=== PATIENT | male | born 1980 | race African-American/Black ===

== ENCOUNTER 2017-12-23 15:26 | Emergency (ER) | payer MEDICAID, OTHER ==
[~2017-12-23] VITALS: Ht 180.3 cm; Wt 88.5 kg
[~2017-12-23 15:26] MED LIST: ADVAIR 100-501 EACH INH; ALBUTEROL SULF8.5 GM INH; AZITHROMYCIN250 MG ORAL; BACTRIM-DS1 EA ORAL; CEPHALEXIN500 MG ORAL; GUAIFENESIN-CO118 M1 ORAL; IBUPROFEN600 M1 PO; IBUPROFEN600 MG ORAL; IBUPROFEN600 MG PO; NKM; NORCO 5-325 TA1 EAC1 ORAL; NORCO 5-325 TA1 EACH ORAL; NORCO 5-325 TA1 EACH PO; PHENERGAN6.25 MG/5 ORAL; PREDNISONE20 MG ORAL; PROMETHAZINE-C118 M1 ORAL; TESSALON PERLE100 MG ORAL
[2017-12-23 15:42] VITALS: BP 135/81
--- NOTE | 2017-12-23 15:44 | Emergency Room Report ---
History of Present Illness General Chief Complaint: Chest Pain Source: Patient, Medical Record Present Illness HPI 37-year-old male with asthma, p/w cough and chest pain for 1 day. Chest pain started while after coughing. Localized to substernal area, no radiation to back or other areas, sharp in nature, gradual in onset, multiple. Also complaining of SOB, states that he has been using his albuterol inhaler today.. Pain is Worsened with deep inspiration. Denies palpitations, diaphoresis, n/ v. Denies fever, chills, abd pain Smokes cigarettes, no other drug use Denies cardiac history or family history of cardiac disease at a young age. Denies history of PE/DVT Allergies: Coded Allergies: No Known Allergies (Unverified , 02/15/15) Patient History Past Medical History: see triage record Past Surgical History: none Pertinent Family History: none Reviewed Nursing Documentation: PMH: Agreed, PSxH: Agreed Nursing Documentation-PMH Past Medical History: No History, Except For Hx Asthma: Yes Review of Systems All Other Systems: negative except mentioned in HPI Physical Exam Vital Signs Date Time Temp Pulse Resp B/P (MAP) Pulse Ox O2 Delivery O2 Flow Rate FiO2 12/23/17 15:31 98.1 102 24 135/81 100 Room Air 98.1 Sp02 EP Interpretation: reviewed, normal General Appearance: alert, GCS 15, non-toxic, mild distress Head: normocephalic, atraumatic Eyes: bilateral eye normal inspection, bilateral eye PERRL, bilateral eye EOMI ENT: normal ENT inspection, normal pharynx, normal voice, moist mucus membranes Neck: normal inspection, full range of motion, supple Respiratory: normal inspection, lungs clear, normal breath sounds, no respiratory distress, no retraction, no wheezing, speaking full sentences, other - NO wheezing. no tachypnea. , chest symmetrical Cardiovascular #1: other - +L sided chest wall tenderness. RRR Cardiovascular #2: 2+ radial (R), 2+ radial (L) Gastrointestinal: normal inspection, non tender, soft, non-distended, no guarding Genitourinary: no CVA tenderness Musculoskeletal: normal inspection, back normal, normal range of motion, non- tender Neurologic: normal inspection, alert, oriented x3, responsive, motor strength/ tone normal, sensory intact, normal gait, speech normal Psychiatric: normal inspection, judgement/insight normal, memory normal Skin: normal inspection, normal color, no rash, warm/dry, well hydrated, normal turgor Medical Decision Making Diagnostic Impression: Primary Impression: Chest pain Additional Impression: Cough ER Course 37-year-old male p/w chest pain DDX: Musculoskeletal CP/costochondritis vs. pneumothorax vs. gastritis/GERD PE less likely given history and physical examination, not hypoxic/tachycardic, no risk factors, PERC negative. ACS less likely given age/history, no concern for dissection, patient denies pain radiating to back Plan: NSAIDs, EKG, CXR Anticipate DC home as patient appears clinically well. ER course: Patient was treated NSAIDs however still appeared uncomfortable and in pain labs drawn, trop neg CTA performed - neg Patient remains well appearing in ED. Disposition: Patient will be discharged to home with a prescription of motrin, Tessalon Perles. Strict precautions discussed with patient on when to emergently return to the ED : this includes worsening/severe chest pain, palpitations, shortness of breath, syncopal episodes, fever or chills, which may indicate severe illness. Patient verbalized understanding. Patient instructed to follow up with their PMD within the next 2 days. Patient agrees with plan. Please note that this Emergency Department Report was dictated using [employer] crew member technology software, occasionally this can lead to erroneous entry secondary to interpretation by the dictation equipment. EKG Diagnostic Results EP Interpretation: Yes Rate: normal Rhythm: NSR ST Segments: No acute changes ASA given to patient: no Rhythm Strip EP Interpretation: Yes Rate: 97 Rhythm: NSR, no PVCs, no ectopy Chest X-ray CXR: Ordered: Yes 1 view Indication: Chest pain EP interpretation: Yes Interpretation: No consolidation, no effusion, no PTX, no acute cardiopulmonary disease, no widened mediastinum Impression: No acute disease Electronically signed by Jovita Sellers MD Laboratory Tests Test 12/23/17 16:40 White Blood Count 6.6 K/UL (4.8-10.8) Red Blood Count 5.90 M/UL (4.70-6.10) Hemoglobin 15.0 G/DL (14.2-18.0) Hematocrit 47.0 % (42.0-52.0) Mean Corpuscular Volume 80 FL (80-99) Mean Corpuscular Hemoglobin 25.4 PG (27.0-31.0) L Mean Corpuscular Hemoglobin Concent 31.8 G/DL (32.0-36.0) L Red Cell Distribution Width 13.8 % (11.6-14.8) Platelet Count 293 K/UL (150-450) Mean Platelet Volume 8.5 FL (6.5-10.1) Neutrophils (%) (Auto) 56.3 % (45.0-75.0) Lymphocytes (%) (Auto) 35.2 % (20.0-45.0) Monocytes (%) (Auto) 6.9 % (1.0-10.0) Eosinophils (%) (Auto) 0.1 % (0.0-3.0) Basophils (%) (Auto) 1.6 % (0.0-2.0) Urine Color Yellow Urine Appearance Clear Urine pH 6 (4.5-8.0) Urine Specific [place] 1.015 (1.005-1.035) Urine Protein 2+ (NEGATIVE) H Urine Glucose (UA) Negative (NEGATIVE) Urine Ketones 4+ (NEGATIVE) H Urine Occult Blood 1+ (NEGATIVE) H Urine Nitrite Negative (NEGATIVE) Urine Bilirubin Negative (NEGATIVE) Urine Urobilinogen 1 MG/DL (0.0-1.0) H Urine Leukocyte Esterase 1+ (NEGATIVE) H Urine RBC 2-4 /HPF (0 - 0) H Urine WBC 0-2 /HPF (0 - 0) Urine Squamous Epithelial Cells None /LPF (NONE/OCC) Urine Bacteria Few /HPF (NONE) Sodium Level 138 MMOL/L (136-145) Potassium Level 4.3 MMOL/L (3.5-5.1) Chloride Level 98 MMOL/L (98-107) Carbon Dioxide Level 23 MMOL/L (21-32) Anion Gap 17 mmol/L (5-15) H Blood Urea Nitrogen 9 mg/dL (7-18) Creatinine 1.4 MG/DL (0.55-1.30) H Estimate Glomerular Filtration Rate > 60 mL/min (>60) Glucose Level 85 MG/DL (74-106) Calcium Level 9.7 MG/DL (8.5-10.1) Total Bilirubin 1.1 MG/DL (0.2-1.0) H Direct Bilirubin 0.2 MG/DL (0.0-0.3) Aspartate Amino Transferase (AST) 25 U/L (15-37) Alanine Aminotransferase (ALT) 21 U/L (12-78) Alkaline Phosphatase 58 U/L (46-116) Troponin I 0.000 ng/mL (0.000-0.056) Total Protein 8.7 G/DL (6.4-8.2) H Albumin 4.5 G/DL (3.4-5.0) Globulin 4.2 g/dL Albumin/Globulin Ratio 1.1 (1.0-2.7) Urine Opiates Screen Negative (NEGATIVE) Urine Barbiturates Screen Negative (NEGATIVE) Phencyclidine (PCP) Screen Negative (NEGATIVE) Urine Amphetamines Screen Negative (NEGATIVE) Urine Benzodiazepines Screen Negative (NEGATIVE) Urine Cocaine Screen Negative (NEGATIVE) Urine Marijuana (THC) Screen Negative (NEGATIVE) CT/MRI/US Diagnostic Results CT/MRI/US Diagnostic Results : Imaging Test Ordered: CTA Impression CTA CHEST: No PE or aortic dissection. No focal consolidation or pleural effusion. Last Vital Signs Date Time Temp Pulse Resp B/P (MAP) Pulse Ox O2 Delivery O2 Flow Rate FiO2 12/23/17 15:31 98.1 102 24 135/81 100 Room Air 98.1 Disposition: HOME, SELF-CARE Condition: Improved Scripts Ibuprofen* (MOTRIN*) 600 Mg Tablet 600 MG ORAL Q8H Y for For Pain, #30 TAB 0 Refills Prov: Jovita Sellers M.D. 12/23/17 Benzonatate* (TESSALON PERLE*) 100 Mg Capsule 100 MG ORAL THREE TIMES A DAY, #21 PERLE Prov: Jovita Sellers M.D. 12/23/17 Patient Instructions: Nonspecific Chest Pain Jovita Sellers M.D. Dec 23, 2017 15:44
[2017-12-23] MEDS ORDERED: Ketorolac 30mg Inj IM ONE (15:45)
[2017-12-23] MEDS ORDERED: IBUPROFEN600 MG ORAL (15:56)
[2017-12-23] MEDS ORDERED: TESSALON PERLE100 MG ORAL (15:56)
--- NOTE | 2017-12-23 16:50 | Diagnostic Imaging Report ---
Indication: Chest pain Comparison: 07/27/2014 A single view chest radiograph was obtained. Findings: Cardiomediastinal appearance is within normal limits for age. Pulmonary vascularity is appropriate. The diaphragmatic contour is smooth and costophrenic angles are sharp. No pleural effusions are identified. The bones are unremarkable. Impression: No acute findings
[2017-12-23 17:02] VITALS: BP 138/78
[2017-12-23 17:04] LABS: BASOPHILS % (AUTO) 1.6 % (0.0-2.0); EOSINOPHILS % (AUTO) 0.1 % (0.0-3.0); LYMPHOCYTES % (AUTO) 35.2 % (20.0-45.0); MEAN CORPUSCULAR VOLUME 80 FL (80-99); MONOCYTES % (AUTO) 6.9 % (1.0-10.0); NEUTROPHILS % (AUTO) 56.3 % (45.0-75.0); PLATELET COUNT 293 K/UL (150-450); RED CELL DISTRIBUTION WIDTH 13.8 % (11.6-14.8); WHITE BLOOD COUNT 6.6 K/UL (4.8-10.8)
[2017-12-23 17:25] LABS: APPEARANCE,URINE CLEAR; BILIRUBIN, URINE NEGATIVE (NEGATIVE); GLUCOSE, URINE (UA) NEGATIVE (NEGATIVE); KETONES,URINE 4+ (NEGATIVE); LEUKOCYTE ESTERASE ,URINE 1+ (NEGATIVE); NITRITE,URINE NEGATIVE (NEGATIVE); PH,URINE 6 (4.5-8.0); PROTEIN,URINE 2+ (NEGATIVE); UROBILINOGEN,URINE 1 MG/DL (0.0-1.0)
[2017-12-23 17:26] LABS: ANION GAP 17 mmol/L (5-15); BLOOD UREA NITROGEN 9 mg/dL (7-18); CALCIUM 9.7 MG/DL (8.5-10.1); CARBON DIOXIDE 23 MMOL/L (21-32); CHLORIDE 98 MMOL/L (98-107); COLOR,URINE YELLOW; CREATININE 1.4 MG/DL (0.55-1.30); POTASSIUM 4.3 MMOL/L (3.5-5.1); SODIUM 138 MMOL/L (136-145)
[2017-12-23 17:33] LABS: ALANINE AMINOTRANSFERASE 21 U/L (12-78); ALBUMIN 4.5 G/DL (3.4-5.0); ALBUMIN/GLOBULIN RATIO 1.1 (1.0-2.7); ALKALINE PHOSPHATASE 58 U/L (46-116); ASPARTATE AMINO TRANSFERASE 25 U/L (15-37); BILIRUBIN,TOTAL 1.1 MG/DL (0.2-1.0)
[2017-12-23 17:35] LABS: BILIRUBIN,DIRECT 0.2 MG/DL (0.0-0.3)
[2017-12-23] MEDS ORDERED: ALBUTEROL SULF8.5 GM INH (19:00)
[2017-12-23] MEDS ORDERED: COMPACT COMPRE1 EACH MC (19:04)
[2017-12-23] MEDS ORDERED: ALBUTEROL2.5 MG/3 M HHN (19:04)
[2017-12-23 19:16] VITALS: BP 138/78
--- NOTE | 2017-12-24 09:39 | Diagnostic Imaging Report ---
Indication: Chest pain Technique: Continuous helical transaxial imaging of the chest was obtained from the thoracic inlet to the upper abdomen during rapid intravenous contrast administration. Arterial phase of enhancement obtained. Coronal 2-D reformats were also obtained and maximum intensity projection images in multiple planes. Study obtained in a Siemens sensation [address] Automatic Exposure Control was utilized. Total Dose length Product (DLP): 717.[address] Dose Index Volume (CTDIvol): 21.41 mGy Comparison: None Findings: The pulmonary artery is well opacified and shows no filling defects. There is no adenopathy, pleural or pericardial effusions are identified. There is no aortic dissection or aneurysm identified within the chest. The lungs are clear. Visualized part of the upper abdomen is unremarkable. Impression: Negative CTA of the chest The CT scanner at [facility] is accredited by the [employer] [employer] and the scans are performed using dose optimization techniques as appropriate to a performed exam including Automatic Exposure control.
--- NOTE | 2017-12-31 16:15 | Cardiology Report ---
APPROVED REPORT EKG Measurement Heart [id number] Sinus tachycardia Biatrial enlargement Abnormal ECG
== END 2017-12-23 19:17 | disposition home or self-care (01) ==
LOC: EMR 16:00
DX: R07.9 Chest pain, unspecified (principal); R05 Cough; J45.909 Unspecified asthma, uncomplicated; F17.210 Nicotine dependence, cigarettes, uncomplicated
CPT/HCPCS: 36415; 71045; 71275; 80053; 80307; 81003; 82248; 84484; 85025; 93005; 96372; 96374; 99284; J1885; Q9967

== ENCOUNTER 2019-03-23 01:49 | Emergency (ER) | payer MEDICAID, OTHER ==
[~2019-03-23] VITALS: Ht 190.5 cm; Wt 81.6 kg
[~2019-03-23 01:49] MED LIST changes: +ALBUTEROL2.5 MG/3 M HHN; +COMPACT COMPRE1 EACH MC
--- NOTE | 2019-03-23 01:55 | NUR ---
ED Nurse Note: Patient walked into ED c/o laceration on the right hand that occured 2 days ago. laceration is about half an inch in length caused by a knife, rates his pain a 8/10 pain.
[2019-03-23 02:00] VITALS: BP 124/83
--- NOTE | 2019-03-23 02:09 | Emergency Room Report ---
History of Present Illness General Chief Complaint: Laceration Source: Patient Present Illness HPI Patient is a 38-year-old male presented after increased pain to his right upper extremity. Patient reports having recent laceration to his right upper extremity. He denies any recent tetanus vaccine. He reports having prior injury to his hand. He reports having decreased movement to the fourth and fifth fingers chronically. He is right-hand dominant. Patient said initially treated with alcohol. He denies any fever. Reports of increased pain gradual onset. Allergies: Coded Allergies: No Known Allergies (Unverified , 02/15/15) Patient History Past Medical History: see triage record Reviewed Nursing Documentation: PMH: Agreed; PSxH: Agreed Nursing Documentation-PMH Past Medical History: No History, Except For Hx Asthma: Yes Review of Systems All Other Systems: negative except mentioned in HPI Physical Exam Vital Signs Date Time Temp Pulse Resp B/P (MAP) Pulse Ox O2 Delivery O2 Flow Rate FiO2 03/23/19 01:55 98.6 87 18 124/83 (97) 99 Room Air General Appearance: well appearing, no apparent distress, alert, GCS 15 Head: normocephalic, atraumatic ENT: hearing grossly normal, normal voice Neck: full range of motion, supple Respiratory: no respiratory distress, speaking full sentences Gastrointestinal: normal inspection, non tender, soft, no mass Musculoskeletal: no calf tenderness Neurologic: normal gait Psychiatric: mood/affect normal Skin: laceration - laceration to dorsum of hand about 2cm linear, no bleeding or erythema Medical Decision Making Diagnostic Impression: Primary Impression: Laceration of hand ER Course .Patient presented for hand laceration. Differential diagnosis include was not limited to cellulitis, contusion, nerve injury among others. Patient has a benign exam and does not appear to require any further imaging or laboratory testing at this time. Patient's wound appears old. There does not appear to be any evidence of infection at this time. Patient was given medications for anti-inflammatory. Patient was noted to have a tetanus vaccine approximately 4 years ago at this facility. He was advised to have wound rechecked in the next few days. Patient advised to return if any worsening condition or other concerns. Last Vital Signs Date Time Temp Pulse Resp B/P (MAP) Pulse Ox O2 Delivery O2 Flow Rate FiO2 03/23/19 01:55 98.6 87 18 124/83 (97) 99 Room Air Status: improved Disposition: HOME, SELF-CARE Condition: Stable Scripts Ibuprofen* (MOTRIN*) 600 Mg Tablet 600 MG ORAL THREE TIMES A DAY, #30 TAB 0 Refills Prov: Oliver Guo MD 03/23/19 Oliver Guo MD Mar 23, 2019 02:09
[2019-03-23] MEDS ORDERED: IBUPROFEN600 MG ORAL (02:16)
[2019-03-23] MEDS ORDERED: Bacitracin Oint UD TOPIC ONE ×2 (02:24→02:30)
[2019-03-23 02:45] VITALS: BP 124/83
--- NOTE | 2019-03-23 02:45 | NUR ---
ER DISCHARGE NOTE: Patient is cleared to be discharged per ERMD, pt is aox4, on room air, with stable vital signs. pt was given dc and prescription instructions, pt was able to verbalize understanding, pt id band removed without complications. pt is able to ambulate with steady gait. pt took all belongings.
== END 2019-03-23 02:45 | disposition home or self-care (01) ==
LOC: EMR 02:06
DX: S61.411A Laceration without foreign body of right hand, initial encounter (principal); X58.XXXA Exposure to other specified factors, initial encounter; Y92.9 Unspecified place or not applicable
CPT/HCPCS: 99282